=== PATIENT | male | born 2000 | race Caucasian/White ===

== ENCOUNTER 2018-07-21 15:17 | Emergency (ER) | payer BC ==
--- NOTE | 2018-07-21 16:15 | ED ---
Upper Extremity Pain - HPI Summary HPI Summary: 17 year old male presents with right thumb pain today. He states he fell during skiing. He believes he hyperextended his thumb. He has pain greatest over the MCP of the right hand. Denies any previous fracture to the area. No numbness or tingling. Has limited range of motion. Denies any wrist pain. No other injury. is right handed. is a student. - History of Current Complaint Chief Complaint: EDExtremityUpper Stated Complaint: HURT MY HANDLE WHILE SKIING HOPE TO GET XRAY PER P Time Seen by Provider: 07/21/18 15:58 - Allergies/Home Medications Allergies/Adverse Reactions: Allergies Allergy/AdvReac Type Severity Reaction Status Date / Time No Known Allergies Allergy Verified 07/21/18 15:21 PMH/Surg Hx/FS Hx/Imm Hx Endocrine/Hematology History: Denies: Hx Anticoagulant Therapy Respiratory History: Denies: Hx Asthma Infectious Disease History: No Infectious Disease History: Denies: Traveled Outside the [place] in Last 30 Days - Family History Known Family History: Positive: Non-Contributory - Social History Alcohol Use: None Substance Use Type: Reports: None Smoking Status (MU): Never Smoked Tobacco Review of Systems Negative: Fever Negative: Chest Pain Negative: Shortness Of Breath Positive: Myalgia - right thumb pain All Other Systems Reviewed And Are Negative: Yes Physical Exam Triage Information Reviewed: Yes Vital Signs On Initial Exam: Initial Vitals Temp Pulse Resp BP Pulse Ox 98.6 F 93 18 125/76 98 07/21/18 15:20 07/21/18 15:20 07/21/18 15:20 07/21/18 15:20 07/21/18 15:20 Vital Signs Reviewed: Yes Appearance: Positive: Well-Appearing Skin: Positive: Warm, Dry Head/Face: Positive: Normal Head/Face Inspection Eyes: Positive: Normal, Conjunctiva Clear ENT: Positive: Pharynx normal Respiratory/Lung Sounds: Positive: Clear to Auscultation, Breath Sounds Present Cardiovascular: Positive: Normal, RRR Musculoskeletal: Positive: Limited @ - right thumb, Other - tenderness greatest over MCP ulnar aspect right thumb. neg snuff box tenderness, good pulses, capillary refill<2 secs Neurological: Positive: Normal Psychiatric: Positive: Normal Diagnostics - Vital Signs Vital Signs Temp Pulse Resp BP Pulse Ox 07/21/18 15:20 98.6 F 93 18 125/76 98 - Laboratory Lab Statement: Any lab studies that have been ordered have been reviewed, and results considered in the medical decision making process. - Radiology hand Radiology Interpretation Completed By: Radiologist Summary of Radiographic Findings: IMPRESSION: No fracture of the right hand is noted. Course/Dx - Course Course Of Treatment: 17 year old male presents with right thumb pain today. He states he fell during skiing. He believes he hyperextended his thumb. He has pain greatest over the MCP of the right hand. Denies any previous fracture to the area. No numbness or tingling. Has limited range of motion. Denies any wrist pain. No other injury. is right handed. is a student. On exam tenderness greatest the MCP over the ulnar aspect of right thumb. Negative snuffbox tenderness. neurovascular Intact. X-rays normal. Discussed likely has skiers thumb. Gave thumb spica splint to wear. Told if no improvement follow-up with orthopedic. Patient understands agrees plan. - Diagnoses Differential Diagnosis/HQI/PQRI: Positive: Fracture (Closed), Strain, Sprain Provider Diagnoses: Pain of right thumb Discharge - Sign-Out/Discharge Documenting (check all that apply): Patient Departure Patient Received Moderate/Deep Sedation with Procedure: No - Discharge Plan Condition: Good Disposition: HOME Patient Education Materials: Skier's Thumb (ED) Referrals: Hima Owens MD [Medical Doctor] - Additional Instructions: your symptoms are likely due to skiers thumb Keep splint on area ice, elevate Take tyenlol or ibuprofen every 6 hours Follow up with ortho if no improvement Return to ED if develop any new or worsening symptoms - Billing Disposition and Condition Condition: GOOD Disposition: Home
[2018-07-21 16:31] VITALS: BP 131/70
== END 2018-07-21 16:30 | disposition home or self-care (01) ==
LOC: ED 15:17
DX: M79.644 Pain in right finger(s) (principal)
CPT/HCPCS: 99282